=== PATIENT | female | born 1955 | race Caucasian/White ===

== ENCOUNTER 2019-09-16 12:25 | Emergency (ER) | payer MEDICAID ==
[~2019-09-16] VITALS: Ht 162.6 cm; Wt 64.0 kg
[~2019-09-16 12:25] MED LIST: AMIT100T PO; BACL-19 PO; CLON1TAB PO; FURO-93; GABA100C PO; LISI1POW; LORA10TA37; OMEP-110; OXYC-307 PO; OXYGEN INH; POTA99TA14; PRED10TA PO; QUET200T4 PO
--- NOTE | 2019-09-16 12:51 | NUR ---
PATIENT BROUGHT BACK FROM TRIAGE WITH CHIEF COMPLAINT OF PAIN IN LEFT FOOT/TOES AFTER DROPPING A 4LB PORK LOIN ON FOOT ONE MONTH AGO. THE PATIENT IS ALERT, ORIENTED, WARM, & DRY.
--- NOTE | 2019-09-16 13:31 | NUR ---
PATIENT RESTING IN BED, CALL LIGHT IN REACH. DAUGHTER AT BEDSIDE.
[2019-09-16 13:35] VITALS: BP 114/69
--- NOTE | 2019-09-16 14:05 | NUR ---
DISCHARGE INSTRUCTIONS REVIEWED
== END 2019-09-16 14:06 | disposition home or self-care (01) ==
LOC: ED 13:30
DX: S90.112A Contusion of left great toe without damage to nail, initial encounter (principal); I10 Essential (primary) hypertension; J44.9 Chronic obstructive pulmonary disease, unspecified; X58.XXXA Exposure to other specified factors, initial encounter; Y93.89 Activity, other specified; Y92.009 Unspecified place in unspecified non-institutional (private) residence as the place of occurrence of the external cause; Y99.8 Other external cause status
CPT/HCPCS: 99283